=== PATIENT | male | born 1960 | race Caucasian/White ===

== ENCOUNTER 2022-04-22 14:05 | Emergency (ER) | payer OTHER | END 2022-04-22 14:58 | disposition home or self-care (01) | LOC: VM.ED 14:05 | DX: R42 Dizziness and giddiness (principal) | CPT/HCPCS: 99283 ==

== ENCOUNTER 2025-03-25 19:08 | Emergency (ER) | payer OTHER, BC | END 2025-03-25 21:27 | disposition home or self-care (01) | LOC: VM.ED 19:08 | DX: S52.022A Displaced fracture of olecranon process without intraarticular extension of left ulna, initial encounter for closed fracture (principal); I10 Essential (primary) hypertension; Z79.899 Other long term (current) drug therapy; W18.39XA Other fall on same level, initial encounter; Y93.89 Activity, other specified | CPT/HCPCS: 73080-LT; 99283; 99284 ==